=== PATIENT | female | born 1975 | race Caucasian/White ===

== ENCOUNTER 2019-04-02 08:51 | Emergency (ER) | payer SELFPAY ==
[2019-04-02 08:57] VITALS: Wt 72.3 kg
[2019-04-02] MEDS ORDERED: ALBUTEROL SULF8.5 GM INH (10:03)
[2019-04-02] MEDS ORDERED: TESSALON PERLE100 MG PO (10:03)
[2019-04-02 10:26] VITALS: BP 145/74
== END 2019-04-02 10:26 | disposition home or self-care (01) ==
LOC: D.ER 08:51
DX: J40 Bronchitis, not specified as acute or chronic (principal); Z72.0 Tobacco use